=== PATIENT | male | born 1985 | race Caucasian/White ===

== ENCOUNTER 2019-09-18 00:47 | Emergency (ER) | payer OTHER ==
[~2019-09-18] VITALS: Ht 175.3 cm; Wt 88.0 kg
[2019-09-18] MEDS ORDERED: MORPHINE SULFATE 4 MG/ML CPJ (NOT FOR IM USE) IV ONE ×2 (01:45→02:45)
[2019-09-18] MEDS ORDERED: LIDOCAINE HCL 1% 20ML VIAL (Pyxis) INJ INFIL ONE (02:45)
[2019-09-18 07:07] VITALS: BP 131/74
== END 2019-09-18 07:11 | disposition home or self-care (01) ==
LOC: ER 00:47
DX: S43.085A Other dislocation of left shoulder joint, initial encounter (principal); F17.210 Nicotine dependence, cigarettes, uncomplicated; Z90.49 Acquired absence of other specified parts of digestive tract; Z71.6 Tobacco abuse counseling; X58.XXXA Exposure to other specified factors, initial encounter; Y93.89 Activity, other specified; Y92.89 Other specified places as the place of occurrence of the external cause
CPT/HCPCS: 23650; 73020; 73030; 96374; 96376; 99284; 99406; J2270; J3490; A4565